=== PATIENT | female | born 1965 | race Caucasian/White ===

== ENCOUNTER 2017-07-01 10:12 | Day surgery (SDC) | payer BC ==
[~2017-07-01] VITALS: Ht 170.2 cm; Wt 74.8 kg
[2017-07-01 12:36] LABS: HEMATOCRIT 41.6 % (36.0-48.0); MCH 31.4 pg (26.0-34.0); MCHC 33.7 g/dL (31.0-37.0); MCV 93.3 fL (80.0-100.0); RBC 4.46 10x6/uL (4.00-5.40); WBC 7.7 10x3/uL (4.8-10.8)
[2017-07-01 14:31] VITALS: BP 107/65; Ht 170.2 cm; Wt 74.8 kg
[2017-07-01] MEDS ORDERED: HYDROCODON-ACE1 EAC7 PO (16:34)
[2017-07-01] MEDS ORDERED: KEFLEX500 MG PO (16:34)
--- NOTE | 2017-07-01 19:25 | NUR ---
1650 POST LEFT ANKLE HARD REECE REMOVAL. AWAKE ALERT, DENIES PAIN OR NAUSEA. FOOT ELEVATED AND ICED.
--- NOTE | 2017-07-01 19:28 | NUR ---
1750 IV DCD VOIDED WITH HELP. GAVE DISCHARGE INSTRUCTIONS AND VERBALLY UNDERSTANDS.
--- NOTE | 2017-07-01 19:30 | NUR ---
1750 TO HOME VIA W/C WITH FAMILY.
--- NOTE | 2017-07-02 09:59 | OP ---
PATIENT NAME: BO BRIGGS MEDICAL RECORD: [id number] :65 LOCATION:[facility] ADMISSION DATE: SURGEON: RUPERTO DEL REAL DO DATE OF OPERATION: 07/01/2017 PROCEDURE PERFORMED: Left tibia removal of hardware. PREOPERATIVE DIAGNOSIS: Painful hardware, left tibia. POSTOPERATIVE DIAGNOSIS: Painful hardware, left tibia. INDICATIONS: Ms. Briggs is a 51-year-old female who had a tibia fracture about 5 years ago and had a tibial nail put in. She has done well since even running on it, but lately she began getting pain at the distal part of the tibia, right over the 2 distal screws. She wished for them to be taken out. SURGEON: Ruperto Del Real DO ESTIMATED BLOOD LOSS: Approximately 25 mL. COMPLICATIONS: None. TOURNIQUET: No tourniquet time. DESCRIPTION OF PROCEDURE: The patient was taken to the operative suite and laid in the supine position. The left lower extremity was prepped and draped in sterile fashion and given a gram of Ancef preoperatively. After this was done, a timeout was performed and everyone was in agreement with the correct site, side and the patient. The procedure was then commenced. An incision was made over the anterior and medial previous incisions. On the medial side, the saphenous vein did get nicked and was bovied and then tied off after some bleeding. After this was done, the screw was removed and then anteriorly, the screw was exposed similarly and the screw was removed. The sites were then closed with a 4-0 Monocryl in an inverted interrupted on the anterior side and then ran under the skin. Dermabond was placed over that. On the medial side, a 2-0 Vicryl was used in an inverted interrupted pattern and then a 4-0 Monocryl was ran on the skin and then a horizontal mattress was put in over that to hold the skin together and then Dermabond was placed over that. Telfa and Tegaderm were placed over each of the wounds. Cast padding and Silvestre was placed over the foot. The patient was awakened and taken to recovery. Before the dressing was put on, there was 10 mL of 0.5% Marcaine that was injected, 5 mL under each incision site. TRANSINT:[id number] Voice Confirmation ID: [id number] DOCUMENT ID: [id number] RUPERTO DEL REAL DO at 0959 CC: [id number] DICTATION DATE: 07/01/17 1638 FILM RENTAL CLERK: 07/01/17 [id number] [facility] [place] 07/01/17 [id number] [place] [address]
== END 2017-07-01 17:50 | disposition home or self-care (01) ==
LOC: D.OPS 10:12 → D.PAN 12:00 → D.OPS 17:50
PROVIDERS: Anesthesiology
DX: T85.848A Pain due to other internal prosthetic devices, implants and grafts, initial encounter (principal); Z87.891 Personal history of nicotine dependence; Z01.812 Encounter for preprocedural laboratory examination

== ENCOUNTER → 2017-09-06 16:15 | Outpatient (CLI) | payer BC ==
[2017-07-01 14:31] VITALS: BMI 25.9
[~2017-09-06 16:15] MED LIST: HYDROCODON-ACE1 EAC7 PO; KEFLEX500 MG PO
== END | disposition home or self-care (01) ==
LOC: D.MAMMO 16:00
DX: Z12.31 Encounter for screening mammogram for malignant neoplasm of breast (principal)